=== PATIENT | female | born 1975 | race Two or more races ===

== ENCOUNTER 2024-04-19 09:47 | Emergency (ER) | payer OTHER ==
[2024-04-19 09:54] VITALS: BP 152/92; PULSE 86; RESP 18; TEMP 98.9; BMI 33.0
[2024-04-19] MEDS: KETOROLAC TROMETHAMINE 30 MG/1 ML VIAL IM ONE (10:53)
[2024-04-19] MEDS: LIDOCAINE 5% TOPICAL PATCH TP ONE (10:53)
[2024-04-19] MEDS ORDERED: LIDOCAINE PATCH REMOVAL MC SCH (22:00)
== END 2024-04-19 11:44 | disposition home or self-care (01) ==
LOC: JER 09:47
PROC: 3E0233Z Introduction of Anti-inflammatory into Muscle, Percutaneous Approach (ICD-10-PCS; principal; 2024-04-19)
DX: M54.6 Pain in thoracic spine (principal)
CPT/HCPCS: 93005; 93010; 99284-25